=== PATIENT | male | born 1945 | race Caucasian/White ===

== ENCOUNTER 2023-05-07 10:29 | Outpatient (OUT) | payer OTHER, SELFPAY ==
[2023-05-07 10:43] LABS: Basophils Absolute Auto 0.1 10^3/uL (0.0-0.1); Eosinophils Absolute Auto 0.2 10^3/uL (0.0-0.7); Eosinophils Percent Auto 1.8 % (0.9-7.0); Hematocrit 49.5 % (42.0-54.0); Hemoglobin 16.4 g/dL (14.0-18.0); Immature Granulocytes Abs Auto 0.02 10^3/uL (0.00-0.03); Immature Granulocytes Pct Auto 0.2 % (0.0-0.5); Lymphocytes Absolute Auto 1.8 10^3/uL (1.2-3.8); Lymphocytes Percent Auto 21.1 % (20.5-60.0); Mean Corpuscular HGB Conc 33.1 g/dL (29.9-35.2); Mean Corpuscular Hemoglobin 31.6 pg (25.9-34.0); Mean Corpuscular Volume 95.4 fL (80.0-94.0); Mean Platelet Volume 10.5 fL (9.5-13.5); Monocytes Absolute Auto 0.6 10^3/uL (0.3-0.8); Monocytes Percent Auto 7.2 % (1.7-12.0); Neutrophils Absolute Auto 5.7 10^3/uL (1.4-6.5); Neutrophils Percent Auto 68.7 % (43.0-75.0); Platelet Count 173 10^3/uL (150-450); Red Blood Count 5.19 10^6/uL (4.70-6.10); Red Cell Distribution Width 13.4 % (11.0-15.0); White Blood Count 8.3 10^3/uL (4.0-11.0)
[2023-05-07 11:21] LABS: Albumin Globulin Ratio 0.9; Albumin Level 3.5 g/dL (3.4-5.0); Alkaline Phosphatase 68 U/L (46-116); Anion Gap 11.1; Aspartate Amino Transferase 36 U/L (15-37); BUN Creatinine Ratio 9.5; Bilirubin Total 0.9 mg/dL (0.2-1.0); Calcium 9.1 mg/dL (8.5-10.1); Carbon Dioxide 29.3 mmol/L (21.0-32.0); Chloride 103 mmol/L (98-107); Chol HDL Ratio 2.9; Cholesterol 88 mg/dL (<=200); Estimated GFR (African America >60 (>=60); Estimated GFR (Non-African Ame >60 (>=60); Globulin 3.8 g/dL; Glucose 102 mg/dL (74-106); HDL Cholesterol 30 mg/dL (40-60); Potassium 4.4 mmol/L (3.5-5.1); Sodium 139 mmol/L (136-145); Total Protein 7.3 g/dL (6.4-8.2); Triglycerides 60 mg/dL (<=150)
[2023-05-07 11:33] LABS: Alanine Aminotransferase 7 U/L (16-63)
== END 2023-05-07 10:30 | disposition home or self-care (01) ==
LOC: LAB 10:29
PROVIDERS: PCP Family Medicine
DX: I25.10 Atherosclerotic heart disease of native coronary artery without angina pectoris (principal)
CPT/HCPCS: 36415; 80053; 80061; 85025